=== PATIENT | male | born 1985 | race Caucasian/White ===

== ENCOUNTER 2017-12-27 12:11 | Emergency (ER) | payer OTHER ==
[~2017-12-27] VITALS: Ht 190.5 cm; Wt 85.0 kg
[~2017-12-27 12:11] MED LIST: DOXYCYCL HYC100 MG PO; FLONASE NASAL50 MCG; MEDDOSEPAK PO; NAPROSYN500 MG PO; NO HOME MEDS; PREDNISONE20 MG PO
[2017-12-27] MEDS ORDERED: MEDDOSEPAK PO (12:25)
[2017-12-27] MEDS ORDERED: ZITHROMAX Z-PA250 MG PO (12:25)
[2017-12-27] MEDS ORDERED: TESSALON PERLE100 MG PO (12:26)
[2017-12-27 14:25] VITALS: BP 169/94
== END 2017-12-27 14:30 | disposition home or self-care (01) | DRG 607 ==
LOC: ED 12:11
DX: L27.1 Localized skin eruption due to drugs and medicaments taken internally (principal); R13.10 Dysphagia, unspecified; T36.3X5A Adverse effect of macrolides, initial encounter; T48.3X5A Adverse effect of antitussives, initial encounter